=== PATIENT | female | born 1960 | race Caucasian/White ===

== ENCOUNTER → 2020-02-14 13:05 | Outpatient (CLI) | payer OTHER, SELFPAY ==
--- NOTE | 2020-02-14 13:11 | BI_ITS ---
MAMMOGRAPHY - BILATERAL DIAGNOSTIC REASON FOR EXAM: Female, 59 years old. Right breast lump. PERTINENT HISTORY: Non-contributory. TECHNIQUE: Digital bilateral breast enid (3D mammographic acquisition) in the CC and MLO projections. 2-D mediolateral oblique (MLO) and craniocaudad (CC) views of both breasts were obtained. CAD: Full Field Digital Mammography with Computer Added Detection was performed. COMPARISON: Comparison is made with prior examination dated 04-19-19. FINDINGS: Breast Composition: The breasts are heterogeneously dense, which may obscure small masses. There are no dominant masses or suspicious calcifications. No other significant abnormalities are identified. There has been no significant change since the prior study. BI/DIAG MAMM W/CAD, BILAT IMPRESSION: Stable bilateral diagnostic mammogram. With the patient''s history of a palpable lump in the right breast, correlation with ultrasound is recommended. ASSESSMENT CATEGORY: BIRADS Category 0: Incomplete. Need additional imaging evaluation. A letter regarding these results will be sent to the patient by the facility within 30 days. Approximately 10% of breast cancers are not detected by mammography. A normal mammogram should not delay biopsy of a clinically suspicious abnormality. Electronically Signed: Estevan Phillips, at 14:28 EDT , Service support ,
--- NOTE | 2020-02-14 13:11 | US_ITS ---
STUDY: ULTRASOUND BREAST - RIGHT REASON FOR EXAM: Female, 59 years old. Palpable lump in the right breast. TECHNIQUE: Axial and longitudinal images of the RIGHT breast were performed with a high resolution ultrasound transducer. # OF IMAGES: 20 COMPARISON: Comparison is made with prior mammogram done earlier today. FINDINGS: RIGHT Breast: There is a 7 mm x 4 mm x 3 mm cyst at the 1 o''clock position of the breast at 1 cm from nipple. There is also evidence of dilated subareolar ducts. US/Breast Limited Unilateral IMPRESSION: 7 mm x 4 mm x 3 mm cyst at the 1 o''clock position of the breast at 1 cm from nipple. Mildly dilated subareolar ducts. ASSESSMENT CATEGORY: BIRADS Category 2: Benign. A letter regarding these results will be sent to the patient by the facility within 30 days. Electronically Signed: Estevan Phillips, at 15:09 EDT , Service support ,
== END ==
PROVIDERS: PCP Family Medicine; Referring Provider Family Medicine; Visit Provider Family Medicine
DX: N63.0 Unspecified lump in unspecified breast (principal)
CPT/HCPCS: 76642; 77062; 77066; G0279